=== PATIENT | female | born 1935 | race Caucasian/White ===

== ENCOUNTER 2016-09-06 11:25 | Emergency (ER) | payer OTHER ==
[2016-09-06 11:32] VITALS: BP 169/86; PULSE 58; RESP 16; TEMP 97.7; O2SAT 97
--- NOTE | 2016-09-06 11:46 | EDPHY ---
H & P Stated Complaint: tripped/fell hitting l head/no loc/and l elbow/denies neck pain Time Seen by Provider: 09/06/16 11:35 HPI/ROS: CHIEF COMPLAINT: Left elbow injury and head injury after ping-pong game HISTORY OF PRESENT ILLNESS: 80-year-old female with no anticoagulant use history arrives via private vehicle stating that she was playing [employer] this morning and tripped fell backward impacting the left occiput of her head against a wall and also impacting her left elbow. No loss of consciousness. She has developed soft tissue swelling of the dorsum of the left elbow. No midline C-spine pain. No peripheral paresthesia, weakness, numbness. No back pain. No chest pain, abdominal pain. No nausea or vomiting. No visual disturbance. She has reproducible pain left elbow with range of motion. REVIEW OF SYSTEMS: A ten point review of systems was performed and is negative with the exception of the items mentioned in the HPI PAST MEDICAL/SURGICAL HISTORY: no anticoagulant use SOCIAL HISTORY: denies alcohol use at time of incident PHYSICAL EXAM 1) GENERAL: Well-developed, well-nourished, alert and oriented. Appears to be in no acute distress. Answering questions appropriately. 2) HEAD: Normocephalic, atraumatic. Tender to palpation left occiput however no visible lesion, no abrasion no hematoma no depression. 3) HEENT: Pupils equal, round, reactive to light bilaterally. Negative Horners. Nasopharynx, oropharynx, clear. No deformity or angulation of nose. No septal hematoma. No rhinorrhea. No oral trauma. Ears bilaterally with normal tympanic membranes. No hemotympanum. No fluid or blood in the external auditory canal. No raccoon eyes. No Lilly sign. Teeth are normally aligned with no gross malocclusion, TMJ bilaterally nontender, facial bones nontender including the zygomatic arch, maxilla mandible. 4) NECK: No cervical collar is on. Posterior cervical spine is nontender, no stepoff, no effusion. Full range of motion which does not elicit any midline cervical spine pain, no posterior midline tenderness, no step-off. 5) LUNGS: Clear to auscultation bilaterally, no wheezes, no rhonchi, no retractions. No obvious signs of trauma. No chest wall pain. No flaring, no grunting. Moving symmetrically. No crepitus. 6) HEART: Regular rate and rhythm, 7) ABDOMEN: No guarding, no rebound, no focal tenderness, no peritoneal signs, no signs of trauma, no ecchymosis 8) MUSCULOSKELETAL: Soft tissue swelling to the dorsum left elbow with 2 cm skin avulsion which is superficial. She has reproducible pain to palpation and with range of motion of the left elbow. Proximally distally nontender. Distal radial ulnar median nerve function intact. No wrist drop. Otherwise, Moving all extremities, no focal areas of tenderness, no obvious trauma. 9) BACK: No midline vertebral tenderness, no fluctuance, no step-off, no obvious trauma, no visual or palpable abnormality. 10) SKIN: No laceration. Left dorsal elbow skin avulsion DIFFERENTIAL DIAGNOSIS: Not necessarily in any particular order, my differential diagnosis includes, but is not limited to, concussion, skull fracture, intraparenchymal contusion, subarachnoid, subdural and epidural hematoma, elbow fracture, traumatic bursitis of the olecranon bursa. The patient understands that this diagnosis is provisional and can never be 100% accurate. - Personal History Current Tetanus/Diphtheria Vaccine: Yes Tetanus Vaccine Date: 2013 - Medical/Surgical History Hx Asthma: No Hx Chronic Respiratory Disease: No Hx Diabetes: No Hx Cardiac Disease: No Hx Renal Disease: No Hx Cirrhosis: No Hx Alcoholism: No Hx HIV/AIDS: No Hx Splenectomy or Spleen Trauma: No Other PMH: ortho surgery - Social History Smoking Status: Never smoked Constitutional: Initial Vital Signs Temperature (C) 36.5 C 09/06/16 11:25 Heart Rate 58 L 09/06/16 11:25 Respiratory Rate 16 09/06/16 11:25 Blood Pressure 169/86 H 09/06/16 11:25 O2 Sat (%) 97 09/06/16 11:25 O2 Delivery Mode Room Air Allergies/Adverse Reactions: No Known Allergies Allergy (Verified 09/06/16 11:26) Home Medications: Medication Instructions Recorded NK [No Known Home Meds] 01/10/14 Medical Decision Making - Diagnostics Imaging: Left Elbow, Three Views History: Pain and swelling, bumped elbow while playing ping-pong Findings: There is soft tissue swelling over the proximal dorsal ulna without evidence of an underlying ulnar fracture. There is equivocally a radial head articular surface fracture. Impression: 1. Dorsal soft tissue swelling with intact ulna 2. Equivocal acute versus old radial head fracture. Is there history of trauma ? Results discussed with JENNIFER Cagle at 12:03 PM Dictated By: Johnny Clarke MD 12:48 p.m.: CT head interpreted by radiologist is negative for fracture or posttraumatic sequelae Images reviewed by myself Procedures: Procedure: Fracture treatment. The patient had x-rays taken and patient was found to have an equivocal radial head fracture interpreted by radiologist. She is tender in this location.. In upper extremity sling was applied by ER template reproduction technician. After application of the splint I returned and re-examined the patient. The splint was adequately immobilizing the joint and distal to the splint the patient's circulation and sensation were intact. Patient shows no signs of compartment syndrome. Was given orthopedic precautions. ED Course/Re-evaluation: Re-evaluation with serial exams. Discussed her imaging results. Usual customary head injury precautions instructions provided. She has been splinted and recommended follow up Orthopedics. Usual And customary orthopedic precautions and instructions provided. She feels comfortable being discharged. All questions and concerns addressed by myself. Departure - Departure Disposition: Home, Routine, Self-Care Clinical Impression: Swelling of left elbow, Skin tear of left elbow without complication, Left radial head fracture, Head injury due to trauma Condition: Good Instructions: Elbow Fracture in Adults (ED), Head Injury (ED) Additional Instructions: ALTHOUGH THERE IS NO EVIDENCE OF SERIOUS HEAD INJURY AT THIS TIME, DELAYED SIGNS CAN APPEAR 24 TO 48 HOURS AFTER INJURY. WE RECOMMEND THAT YOU DESIGNATE A FRIEND OR FAMILY MEMBER TO OBSERVE YOU OVER THE NEXT FEW DAYS TO ENSURE THAT YOUR CONDITION IS PROGRESSING NORMALLY. PLEASE RETURN TO THE EMERGENCY DEPARTMENT (ED) IMMEDIATELY IF YOU HAVE INCREASED HEADACHE, PERSISTENT HEADACHE , VOMITING, WEAKNESS, CONFUSION OR VISUAL PROBLEMS. Return to the ER immediately if you experience discoloration, have worsening pain, numbness, tingling, or any other symptoms that concern you. If you received x-rays in the emergency department today, be advised, that ligamentous , tendon, muscular, and other non-bony injury cannot be fully ruled out. Referrals: Regulo Wilcox MD [Medical Doctor] - 2-3 days, call for appt.
--- NOTE | 2016-09-06 12:04 | DX ---
Left Elbow, Three Views History: Pain and swelling, bumped elbow while playing ping-pong Findings: There is soft tissue swelling over the proximal dorsal ulna without evidence of an underl sofía ulnar fracture. There is equivocally a radial head articular surface fracture. Impression: 1. Dorsal soft tissue swelling with intact ulna 2. Equivocal acute versus old radial head fracture. Is there history of trauma? Results discussed with JENNIFER Cagle at 12:03 PM
--- NOTE | 2016-09-06 12:54 | CT ---
CT Scan of the Head (Without Contrast) Clinical History: 80-year-old female who fell today sustaining a left occipital head injury. Rule out acute intracranial abnormality. Technique: Axial unenhanced images were obtained from the vertex through the skull base, reformatted at 5.00 and 1.50 mm increments, and reviewed in bone, brain, and subdural windows. Images were repro cessed in parasagittal and paracoronal planes. Dose reduction techniques were utilized. Comparison: Unenhanced CT scan of the brain, dated 01/10/2014. Findings: Again, there is prominence of the ventricles and basilar cisterns, with cortical sulcal wid ening, consistent with moderately advanced cerebral cortical atrophy. There is periventricular dimini shed attenuation, consistent with chronic microvascular ischemic gliosis. There is no intracranial he morrhage identified. There are no abnormal extraaxial fluid collections identified. There is no mass effect, or evidence of an acute infarct. The skull and skull base are unremarkable. There is some mural atherosclerotic calcification associated with the cavernous carotid arteries. The paranasal sin uses and the mastoids are patent. The craniocervical junction, sella tursica, pineal gland, and the o rbits are within normal limits. Impression: Senescent features with no acute intracranial abnormality, or substantial change from 12/20. If there is further clinical concern regarding the patient's symptoms, MR imaging is suggested, if no t otherwise contraindicated. Results were conveyed to Iftikhar Barger at 12:45 PM on 09/06/2016.
== END 2016-09-06 13:03 | disposition home or self-care (01) ==
DX: S52.102A Unspecified fracture of upper end of left radius, initial encounter for closed fracture (principal); S51.012A Laceration without foreign body of left elbow, initial encounter; S09.90XA Unspecified injury of head, initial encounter; W01.198A Fall on same level from slipping, tripping and stumbling with subsequent striking against other object, initial encounter; Y99.8 Other external cause status; Y93.89 Activity, other specified
CPT/HCPCS: 70450; 73080; 99284; A4565

== ENCOUNTER → 2017-06-02 | Outpatient (CLI) | payer OTHER | LOC: FIMAGING 08:21 | PROVIDERS: ATTEND Family Medicine Geriatric Medicine | DX: G31.9 Degenerative disease of nervous system, unspecified (principal) | CPT/HCPCS: 82607-90 ==